=== PATIENT | female | born 1990 | race Hispanic/Latino ===

== ENCOUNTER 2017-02-07 09:09 | Emergency (ER) | payer SELFPAY ==
[2017-02-07 09:44] VITALS: BP 142/90
--- NOTE | 2017-02-07 10:12 | Emergency Department Report ---
Entered by PAULINE COLEMAN, acting as scribe for LINA MONROY NP. Chief Complaint: Abdominal Pain Stated Complaint: LOWER LEFT ABD SWELLING Time Seen by Provider: 02/07/17 09:54 - HPI History of Present Illness: 26 y/o female presents c/o lump on left inguinal area noticed 1 week ago. Sx include heartburn, nausea but denies pain. PT unsure if she is - ROS Review of Systems: +nausea, heartburn -pain - Exam Vital Signs: Vital Signs 02/07/17 09:38 Temperature 99.4 F Pulse Rate 105 H Respiratory 16 Rate Blood Pressure 142/90 O2 Sat by Pulse 100 Oximetry MSE screening note: Focused history and physical exam performed. Due to findings the following was ordered: labs ED Disposition for MSE Condition: Stable Instructions: Abdominal Pain (ED) This documentation as recorded by the scribeJARED RYAN,accurately reflects the service I personally performed and the decisions made by me,LINA MONROY , RESIDENTIAL DRIVER.
[2017-02-07 12:24] LABS: Bilirubin,Urine NEG (Negative); Blood,Urine SM (Negative); Ketones,Urine NEG (Negative); Leukocyte Esterase,Urine TR (Negative); Nitrite,Urine NEG (Negative); Protein,Urine <15 mg/dL mg/dL (Negative); Urobilinogen,Urine < 2.0 mg/dL (<2.0)
== END 2017-02-07 11:30 | disposition left against medical advice (07) ==
LOC: ED 09:09
DX: R19.04 Left lower quadrant abdominal swelling, mass and lump (principal); Z53.21 Procedure and treatment not carried out due to patient leaving prior to being seen by health care provider
CPT/HCPCS: 81001; 81025

== ENCOUNTER 2017-10-16 23:33 | Emergency (ER) | payer OTHER ==
[2017-10-17] MEDS ORDERED: TYLENOL ONE (00:32)
[2017-10-17] MEDS ORDERED: TYLENOL PO ONE (00:35)
[2017-10-17 01:15] LABS: Hematocrit 40.4 % (30.3-42.9); Hemoglobin 13.4 gm/dl (10.1-14.3); Mean Corpuscular HGB Conc 33 % (30-34); Mean Corpuscular Hemoglobin 28 pg (28-32); Mean Corpuscular Volume 86 fl (79-97); Platelet Count 174 K/mm3 (140-440); Red Blood Count 4.73 M/mm3 (3.65-5.03); White Blood Count 7.7 K/mm3 (4.5-11.0)
[2017-10-17 01:22] LABS: Anion Gap 20 mmol/L; BUN/Creatinine Ratio 12; Blood Urea Nitrogen 7 mg/dL (7-17); Calcium 8.3 mg/dL (8.4-10.2); Carbon Dioxide 20 mmol/L (22-30); Chloride 93.3 mmol/L (98-107); Glucose 110 mg/dL (65-100); Potassium 3.7 mmol/L (3.6-5.0); Sodium 130 mmol/L (137-145)
--- NOTE | 2017-10-17 02:29 | Emergency Department Report ---
Minor Respiratory - HPI Chief Complaint: Upper Respiratory Infection Stated Complaint: Whole body feels like its shutting down Time Seen by Provider: 10/17/17 02:28 Duration: 3 Days Pain Location: Other (generalized muscle aches) Severity: mild Minor Respiratory: Yes Rhinorrhea, Yes Sore Throat, Yes Able to Tolerate Fluids , Yes Cough, Yes Sick Contacts, Yes Fever, No Ear Pain, No Hemoptysis, No Chest Pain, No Shortness of Breath Other History: This is a 26 y.o. female presenting with a 3 day history of muscle aches and productive cough. She is homeless and states she has been around several people who are sick. She feel like she may have the flu or pnuemonia because she has never felt like this before. She is concerned she may possibly be . Denies trying OTC medication for symptom relief. Denies SOB, chest pain, weakness, wheezing, difficulty swallowing and maintaining oral intake, or abdominal pain. ED Review of Systems ROS: Stated complaint: Whole body feels like its shutting down Other details as noted in HPI Constitutional: no symptoms reported, see HPI, chills, fever. denies: diaphoresis, malaise, weakness ENT: as per HPI, congestion. denies: ear pain, throat pain, dental pain, hearing loss, epistaxis Respiratory: no symptoms reported, see HPI, cough (greenish-yellow). denies: orthopnea, shortness of breath, SOB with exertion, SOB at rest, stridor, wheezing Cardiovascular: as per HPI. denies: chest pain, palpitations, dyspnea on exertion, orthopnea, edema, syncope, paroxysmal nocturnal dyspnea Gastrointestinal: as per HPI. denies: abdominal pain, nausea, vomiting, diarrhea, constipation, hematemesis, melena, hematochezia Neurological: as per HPI. denies: headache, weakness, numbness, paresthesias, confusion, abnormal gait, vertigo Psychiatric: as per HPI. denies: anxiety, depression, auditory hallucinations, visual hallucinations, homicidal thoughts, suicidal thoughts ED Past Medical Hx - Past Medical History Previous Medical History?: Yes Additional medical history: Broken Femur - Surgical History Past Surgical History?: Yes Additional Surgical History: FX FEMUR / SURGERY - Social History Smoking Status: Current Every Day Smoker - Medications Home Medications: Home Medications Medication Instructions Recorded Confirmed Last Taken Type Azithromycin [Zithromax Z-KENN] 250 mg PO DAILY 5 Days #6 tablet 10/17/17 Unknown Rx Benzonatate 200 mg PO TID 10 Days #30 capsule 10/17/17 Unknown Rx Fluticasone [Flonase] 1 spray NS QDAY #1 bottle 10/17/17 Unknown Rx Minor Respiratory Exam - Exam General: Vital signs noted. No distress. Alert and acting appropriately. HEENT: Yes Pharyngeal Erythema, Yes Moist Mucous Membranes, Yes Rhinorrhea ( bilateral nares congested, edematous turbinates, with yellow drainage, septum midline), No Pharyngeal Exudates, No Conjuctival Injection, No Frontal Tenderness, No Maxillary Tenderness Ear: Neither TM Bulge, Neither TM Erythema, Neither EAC Pain, Neither EAC Discharge Neck: Yes Supple (non-tender), No Adenopathy Lungs: Yes Good Air Exchange, Yes Cough (congested cought, lungs resonant upon percussion w/o evidence of consolidation), No Wheezes, No Ronchi, No Stridor, No Labored Respirations, No Retractions, No Use of Accessory Muscles, No Other Abnormal Lung Sounds Heart: Yes Regular, No Murmur Abdomen: Yes Normal Bowel Sounds, No Tenderness, No Peritoneal Signs Skin: No Rash, No Edema Neurologic: Alert and oriented, no deficits. Musculoskeletal: Unremarkable. ED Course Vital Signs 10/17/17 10/17/17 00:20 00:54 Temperature 100.5 F H Pulse Rate 122 H Respiratory 20 20 Rate Blood Pressure 146/102 O2 Sat by Pulse 97 Oximetry Vital Signs 10/17/17 10/17/17 10/17/17 00:20 00:54 02:37 Temperature 100.5 F H 98.9 F Pulse Rate 122 H 98 H Respiratory 20 20 18 Rate Blood Pressure 146/102 Blood Pressure 133/90 [Left] O2 Sat by Pulse 97 99 Oximetry ED Medical Decision Making - Lab Data Result diagrams: 10/17/17 00:56 10/17/17 00:56 Critical care attestation.: If time is entered above; I have spent that time in minutes in the direct care of this critically ill patient, excluding procedure time. ED Disposition Clinical Impression: URI (upper respiratory infection) Qualifiers: URI type: acute nasopharyngitis (common cold) Qualified Code(s): J00 - Acute nasopharyngitis [common cold] Disposition: - TO HOME OR SELFCARE Is pt being admited?: No Does the pt Need Aspirin: No Condition: Stable Instructions: Upper Respiratory Infection (ED), Cold Symptoms (ED) Additional Instructions: Take medications as directed. Take tylenol or ibuprofen for fever and pain control. Recommend annual influenza vaccine. Avoid smoking or exposure to smoke. May utilize OTC chloraseptic spray and warm salt water gargles TID and prn for relief of sore throat. Continue to maintain adequate hydration with 8 glasses of water per day. Return for any worsening symptoms, continued fever, green nasal drainage, persistent cough, or SOB. Prescriptions: Azithromycin [Zithromax Z-KENN] 250 mg PO DAILY 5 Days #6 tablet Benzonatate 200 mg PO TID 10 Days #30 capsule Fluticasone [Flonase] 1 spray NS QDAY #1 bottle Referrals: EDGAR GAMING MD [Primary Care Provider] - 3-5 Days Time of Disposition: 03:30 Print Language: CZECH
[2017-10-17 03:47] VITALS: BP 130/94
--- NOTE | 2017-10-17 04:52 | XRay Report ---
FINAL REPORT EXAM: XR CHEST ROUTINE 2V HISTORY: productive cough and fever TECHNIQUE: PA and lateral chest radiographs PRIORS: None. FINDINGS: No mediastinal shift. Cardiac silhouette is not enlarged. No pneumothorax, effusion, or focal pulmonary opacity. No acute skeletal finding. IMPRESSION: No focal pulmonary opacity.
== END 2017-10-17 03:47 | disposition home or self-care (01) ==
LOC: ED 23:33
DX: J00 Acute nasopharyngitis [common cold] (principal); F17.200 Nicotine dependence, unspecified, uncomplicated
CPT/HCPCS: 36415; 71020; 80048; 84703; 85027; 87400; 99284